=== PATIENT | male | born 1975 ===

== ENCOUNTER 2024-02-11 06:46 | Day surgery (SDC) | payer BC, SELFPAY | END 2024-02-11 16:09 | disposition home or self-care (01) | LOC: GI 06:46 | PROVIDERS: ATTENDING PHYSICIAN Internal Medicine; FAMILY PHYSICIAN Family Medicine | DX: Z12.11 Encounter for screening for malignant neoplasm of colon (principal); Z53.8 Procedure and treatment not carried out for other reasons | CPT/HCPCS: 45378; G0378 ==

== ENCOUNTER 2024-02-12 06:35 | Day surgery (SDC) | payer BC, SELFPAY | END 2024-02-12 16:09 | disposition home or self-care (01) | LOC: GI 06:35 | PROVIDERS: ATTENDING PHYSICIAN Student in an Organized Health Care Education/Training Program | DX: Z12.11 Encounter for screening for malignant neoplasm of colon (principal) | CPT/HCPCS: G0121 ==